=== PATIENT | female | born 1985 ===

== ENCOUNTER 2021-06-16 16:20 | Outpatient (REF) | payer MEDICAID, SELFPAY ==
[2021-06-16 16:35] LABS: Appearance Urine CLOUDY; Color Urine YELLOW; Glucose Urine UA NEG (NEG); Leukocyte Esterase Urine 3+ (NEG); Nitrite Urine NEG (NEG); PH 6.5 (5.0-8.0); Specific Gravity - Urine 1.015 (1.005-1.025); UACC Culture Trigger YES; Urine Blood 3+ (NEG); Urine Ketones NEG (NEG); Urine Protein TRACE MG/DL (NEG-TRACE)
[2021-06-16 17:25] LABS: Bacteria Urine 4+ /LPF; WBC Urine TNTC /HPF (0-4)
== END 2021-06-16 16:21 | disposition home or self-care (01) ==
LOC: HO.LNP 16:20
PROVIDERS: Visit Provider Specialist
DX: R50.9 Fever, unspecified (principal)
CPT/HCPCS: 81001; 87086; 87088; 87186

== ENCOUNTER 2023-03-27 16:40 | Outpatient (REF) | payer MEDICAID, SELFPAY | END 2023-03-27 16:41 | disposition home or self-care (01) | LOC: HO.LNP 16:40 | PROVIDERS: Visit Provider Nurse Practitioner Adult Health | DX: Z13.89 Encounter for screening for other disorder (principal) | CPT/HCPCS: 80048; 85025 ==

== ENCOUNTER 2023-09-28 19:08 | Outpatient (REF) | payer MEDICAID, SELFPAY | END 2023-09-28 19:09 | disposition home or self-care (01) | LOC: HO.WMHL 19:08 | PROVIDERS: Visit Provider Nurse Practitioner Adult Health | DX: Z13.89 Encounter for screening for other disorder (principal) | CPT/HCPCS: 81001; 87086; 87088; 87186 ==

== ENCOUNTER 2024-01-05 10:54 | Outpatient (REF) | payer MEDICAID, SELFPAY | END 2024-01-05 10:55 | disposition home or self-care (01) | LOC: HO.WMHL 10:54 | PROVIDERS: Visit Provider Nurse Practitioner Adult Health | DX: R50.9 Fever, unspecified (principal) | CPT/HCPCS: 81001; 81003; 87086; 87088; 87186 ==